=== PATIENT | female | born 2000 | race Caucasian/White ===

== ENCOUNTER 2018-01-09 07:44 | Inpatient (IN) | payer OTHER ==
[2018-01-09] MEDS ORDERED: Nalbuphine 20 MG/ML 1 ML Syringe IVPUSH PRN (16:15)
[2018-01-09] MEDS ORDERED: Sodium Chloride 0.9% 10 ML Syringe FLUSH PRN (16:15)
--- NOTE | 2018-01-09 16:19 | PCM.PRNOTE ---
- Free Text/Narrative Note: Patient consented for harper bulb placement. Cervix 06/24/-3 Harper bulb placed. Inflated to 30 mL Patient tolerated well
[2018-01-09] MEDS ORDERED: ePHEDrine 50 MG/ML SDV IVPUSH PRN (19:10)
[2018-01-09] MEDS ORDERED: fentaNYL 100 MCG/2 ML SDV EPIDUR PRN (19:10)
[2018-01-09] MEDS ORDERED: Ondansetron 4 MG/2 ML SDV IVPUSH PRN (19:10)
--- NOTE | 2018-01-09 19:17 | PCM.PREANE ---
Preanesthetic Assessment - Procedure Proposed Procedure: ANSELMO - Anesthesia/Transfusion/Family Hx Anesthesia History: Prior Anesthesia Without Reaction Family History of Anesthesia Reaction: No Transfusion History: No Prior Transfusion(s) Additional History: Allergic to PCN - Review of Systems General: No Symptoms Pulmonary: No Symptoms Cardiovascular: No Symptoms Gastrointestinal: Other (GERD with ) Neurological: No Symptoms Other: Reports: None - Physical Assessment NPO Status Date: 01/09/18 NPO Status Time: 16:00 Pulse: 100 O2 Sat by Pulse Oximetry: 98 Respiratory Rate: 20 Blood Pressure: 123/82 Temperature: 37.0 C ASA Class: 2 Mental Status: Alert & Oriented x3 Airway Class: Mallampati = 1 Dentition: Reports: Normal Dentition Thyro-Mental Finger Breadths: 3 Mouth Opening Finger Breadths: 3 ROM/Head Extension: Full Lungs: Clear to Auscultation, Normal Respiratory Effort Cardiovascular: Regular Rate, Regular Rhythm - Lab Values: Laboratory Last Values WBC 14.29 K/mm3 (3.98-10.04) H 01/09/18 16:34 RBC 4.42 M/mm3 (3.98-5.22) 01/09/18 16:34 Hgb 13.1 gm/L (11.2-15.7) 01/09/18 16:34 Hct 40.1 % (34.1-44.9) 01/09/18 16:34 MCV 90.7 fl (79.4-94.8) 01/09/18 16:34 MCH 29.6 pg (25.6-32.2) 01/09/18 16:34 MCHC 32.7 g/dl (32.2-35.5) 01/09/18 16:34 RDW Std Deviation 45.2 fL (36.4-46.3) 01/09/18 16:34 Plt Count 241 K/mm3 (182-369) 01/09/18 16:34 MPV 11.5 fl (9.4-12.3) 01/09/18 16:34 MRSA (PCR) Negative 01/09/18 15:07 Blood Type O POSITIVE 01/09/18 16:34 Gel Antibody Screen Negative 01/09/18 16:34 - Blood Blood Available: No Product(s) Available: None - Anesthesia Plan Pre-Op Medication Ordered: None - Acknowledgements Anesthesia Type Planned: Epidural Pt an Appropriate Candidate for the Planned Anesthesia: Yes Alternatives and Risks of Anesthesia Discussed w Pt/Guardian: Yes Pt/Guardian Understands and Agrees with Anesthesia Plan: Yes PreAnesthesia Questionnaire - CURRENT (IN HOUSE) MEDS Current Meds: Current Medications Diphenhydramine HCl (Benadryl) 25 mg IVPUSH Q6H PRN PRN Reason: Pruritis Ephedrine Sulfate (Ephedrine Sulfate) 5 mg IVPUSH ASDIRECTED PRN PRN Reason: Hypotension Fentanyl (Sublimaze) 100 mcg EPIDUR Q3H PRN PRN Reason: Pain Fentanyl/Bupivacaine HCl (Fentanyl/Bupivacaine/Ns 2 Mcg-0.125% 100 Ml) 100 ml EPIDUR ASDIRECTED WILLIAN Lactated Ringer's (Ringers, Lactated) 1,000 mls @ 100 mls/hr IV ASDIRECTED WILLIAN Nalbuphine HCl (Nubain) 10 mg IVPUSH Q2H PRN PRN Reason: pain Ondansetron HCl (Zofran) 4 mg IVPUSH ONETIME PRN PRN Reason: Nausea/Vomiting Sodium Chloride (Saline Flush) 10 ml FLUSH ASDIRECTED PRN PRN Reason: Keep Vein Open
[2018-01-09] MEDS ORDERED: Pneumococcal Polyvalent-23 Vaccine 0.5 ML SDV IM ONE (19:22)
[2018-01-09] MEDS ORDERED: Diphtheria,Pertussis(Acell),Tetanus Vaccine 0.5 ML SDV IM ONE (19:22)
[2018-01-09] MEDS ORDERED: Bupivacaine 0.25% 10 ML SDV ONE (22:00)
[2018-01-10] MEDS: Acetaminophen 325 MG Tab PO PRN ×2 (01:34→15:22)
[2018-01-10] MEDS: Lactated Ringers 1,000 ML IV SCH ×3 (05:21→20:57)
[2018-01-10] MEDS: Oxytocin/Lactated Ringers 10 UNIT/1,000 ML BAG IV SCH ×2 (05:21→16:00)
[2018-01-10] MEDS: Bupivacaine/fentaNYL/NS 100 ML Bag EPIDUR SCH (18:54)
[2018-01-10] MEDS: diphenhydrAMINE 50 MG/ML SDV IVPUSH PRN (22:11)
[2018-01-11] MEDS: Lactated Ringers 1,000 ML IV SCH ×6 (00:39→07:09)
[2018-01-11] MEDS: Bupivacaine/fentaNYL/NS 100 ML Bag EPIDUR SCH (02:27)
[2018-01-11] MEDS ORDERED: fentaNYL 100 MCG/2 ML SDV EPIDUR PRN (04:57)
[2018-01-11] MEDS: diphenhydrAMINE 50 MG/ML SDV IVPUSH PRN (05:42)
--- NOTE | 2018-01-11 05:56 | PCM.SN ---
- Free Text/Narrative Note: Epidural catheter disconnected on arrival to OB. The locking device had opened slightly and the catheter had pulled back. On inspection fluid was noted at the tip of the epidural catheter. No fluid was noted on the pillow. Nursing noted they had been in around 0400 and the Haroon was using her epidural SCHEDULING ADMINISTRATOR with some relief and feeling of cold infusing and epidural was intact at that point. Epidural line was cleaned and dried. A new connector and filter were placed on the epidural.
--- NOTE | 2018-01-11 08:29 | PCM48HPAN ---
Post Anesthesia Note - EVALUATION WITHIN 48HRS OF ANESTHETIC Vital Signs in Normal Range: Yes Patient Participated in Evaluation: Yes Respiratory Function Stable: Yes Airway Patent: Yes Cardiovascular Function Stable: Yes Hydration Status Stable: Yes Pain Control Satisfactory: Yes Nausea and Vomiting Control Satisfactory: Yes Mental Status Recovered: Yes Pulse Rate: 100 Resp Rate: 20 Temperature: 98.6 F Blood Pressure: 123/82
[2018-01-11] MEDS ORDERED: Witch Hazel Medicated Pads 100/Jar TOP PRN (09:24)
[2018-01-11] MEDS ORDERED: Docusate Sodium 100 MG Cap PO PRN (09:24)
[2018-01-11] MEDS ORDERED: Lanolin 100% Cream 7 GM Tube TOP PRN (09:24)
[2018-01-11] MEDS ORDERED: Benzocaine/Menthol 20%-0.5% Spray 56 GM Canister TOP PRN (09:24)
[2018-01-11] MEDS: Ibuprofen 600 MG Tab PO PRN ×2 (10:11→17:59)
--- NOTE | 2018-01-11 18:54 | PCM.SN ---
- Free Text/Narrative Note: See paper H&P from clinic chart
--- NOTE | 2018-01-11 19:01 | PCM.SN ---
- Free Text/Narrative Note: Stage I: Patient presented for induction for elevated blood pressures. Mcadams bulb placed. AROM clear fluid. Pitocin augmentation and progressed very slowly to complete. Stage II: of a viable male. Weight 2910g. APGARs 8/9 at 0734. Head delivered in controlled manner over intact perineum. Body and shoulders followed atraumatically. Baby to maternal abdomen. Cord clamped and cut. Cord blood collected. 3vc. Stage III - Placenta delivered spontaneously and intact. Minimal ebl. No laceration.
[2018-01-12] MEDS: Ibuprofen 600 MG Tab PO PRN ×2 (01:23→06:12)
--- NOTE | 2018-01-12 08:40 | PCM.DCSUM1 ---
Discharge Summary - Hospital Course Diagnosis: Stroke: No - Discharge Data Discharge Date: 01/12/18 Discharge Disposition: Home, Self-Care 01 Condition: Good - Patient Instructions Diet: Usual Diet as Tolerated Activity: No Strenuous Activities Activity, Other: pelvic rest Driving: May Drive Today Showering/Bathing: May Shower Notify Provider of: Fever, Increased Pain, Swelling and Redness, Drainage, Nausea and/or Vomiting - Discharge Plan *PRESCRIPTION DRUG MONITORING PROGRAM REVIEWED*: No *COPY OF PRESCRIPTION DRUG MONITORING REPORT IN PATIENT AYAN: No Home Medications: Home Meds Cetirizine [ZyrTEC] 10 mg PO DAILY PRN 01/09/18 [History] Pnv No.122/Iron/Folic Acid [ Multi Tablet] 1 each PO DAILY 01/09/18 [ History] Referrals: Carol Kaur MD [Primary Care Provider] - (2-4 weeks) - Discharge Summary/Plan Comment DC Time >30 min.: No - General Info Date of Service: 01/12/18 Functional Status: Reports: Pain Controlled - Review of Systems General: Reports: No Symptoms HEENT: Reports: No Symptoms Pulmonary: Reports: No Symptoms Cardiovascular: Reports: No Symptoms Gastrointestinal: Reports: No Symptoms Genitourinary: Reports: No Symptoms Musculoskeletal: Reports: No Symptoms Skin: Reports: No Symptoms Neurological: Reports: No Symptoms Psychiatric: Reports: No Symptoms - Patient Data Vitals - Most Recent: Last Vital Signs Temp 36.9 C 01/12/18 04:58 Pulse 77 01/12/18 04:58 Resp 16 01/11/18 21:58 BP 110/49 L 01/12/18 04:58 Pulse Ox 97 01/12/18 04:58 Weight - Most Recent: 95.164 kg I&O - Last 24 hours: Intake & Output 01/11/18 01/12/18 01/12/18 22:59 06:59 14:59 Intake Total 120 Balance 120 CARLENE Results - Last 24 hrs: Microbiology 01/09/18 15:09 MRSA Culture - Final Axilla, Right NO MRSA ISOLATED Med Orders - Current: Current Medications Benzocaine/Menthol (Dermoplast Pain Relief [place]) 0 gm TOP ASDIRECTED PRN PRN Reason: Perineal Comfort Measure Last Admin: 01/11/18 10:11 Dose: 1 can Docusate Sodium (Colace) 100 mg PO BID PRN PRN Reason: Constipation Emollient Ointment (Lansinoh Hpa) 0 gm TOP ASDIRECTED PRN PRN Reason: Sore Nipples Ibuprofen (Motrin) 600 mg PO Q6H PRN PRN Reason: Mild pain or fever Last Admin: 01/12/18 06:12 Dose: 600 mg Witch Gloria (Tucks) 1 pad TOP ASDIRECTED PRN PRN Reason: Hemorrhoid pain Last Admin: 01/11/18 10:11 Dose: 1 canister Discontinued Medications Acetaminophen (Tylenol) 650 mg PO Q6H PRN PRN Reason: Headache Last Admin: 01/10/18 15:22 Dose: 650 mg Bupivacaine HCl (Sensorcaine-Mpf 0.25%) 10 ml .ROUTE .STK-MED ONE Stop: 01/09/18 22:01 Diphenhydramine HCl (Benadryl) 25 mg IVPUSH Q6H PRN PRN Reason: Pruritis Last Admin: 01/11/18 05:42 Dose: 12.5 mg Diphtheria/Tetanus/Acell Pertussis (Adacel) 0.5 ml IM .ONCE ONE Stop: 01/09/18 19:23 Ephedrine Sulfate (Ephedrine Sulfate) 5 mg IVPUSH ASDIRECTED PRN PRN Reason: Hypotension Fentanyl (Sublimaze) 100 mcg EPIDUR Q3H PRN PRN Reason: Pain Last Admin: 01/10/18 18:54 Dose: 100 mcg Fentanyl (Sublimaze) 100 mcg EPIDUR ONETIME PRN PRN Reason: Pain Last Admin: 01/11/18 05:15 Dose: 100 mcg Fentanyl/Bupivacaine HCl (Fentanyl/Bupivacaine/Ns 2 Mcg-0.125% 100 Ml) 100 ml EPIDUR ASDIRECTED WILLIAN Last Admin: 01/11/18 02:27 Dose: 100 ml Lactated Ringer's (Ringers, Lactated) 1,000 mls @ 100 mls/hr IV ASDIRECTED WILLIAN Last Admin: 01/11/18 07:09 Dose: 100 mls/hr Oxytocin/Lactated Ringer's (Pitocin In Lr 10 Units/1,000 Ml) 10 unit in 1,000 mls @ 12 mls/hr IV TITRATE WILLIAN; Protocol Last Titration: 01/11/18 06:30 Dose: Infused Nalbuphine HCl (Nubain) 10 mg IVPUSH Q2H PRN PRN Reason: pain Ondansetron HCl (Zofran) 4 mg IVPUSH ONETIME PRN PRN Reason: Nausea/Vomiting Pneumococcal Polyvalent Vaccine (Pneumovax 23) 0.5 ml IM .ONCE ONE Stop: 01/09/18 19:23 Sodium Chloride (Saline Flush) 10 ml FLUSH ASDIRECTED PRN PRN Reason: Keep Vein Open - Exam General: Reports: Alert, Oriented HEENT: Reports: Pupils Equal, Pupils Reactive, EOMI, Mucous Membr. Moist/[place] Neck: Reports: Supple Lungs: Reports: Clear to Auscultation, Normal Respiratory Effort Cardiovascular: Reports: Regular Rate, Regular Rhythm GI/Abdominal Exam: Normal Bowel Sounds, Soft, Non-Tender, No Organomegaly, No Distention, No Abnormal Bruit, No Mass, Pelvis Stable Back Exam: Reports: Normal Inspection, Full Range of Motion Extremities: Normal Inspection, Normal Range of Motion, Non-Tender, No Pedal Edema, Normal Capillary Refill Skin: Reports: Warm, Dry, Intact Wound/Incisions: Reports: Healing Well Neurological: Reports: No New Focal Deficit Psy/Mental Status: Reports: Alert, Normal Affect, Normal Mood
[2018-01-12] MEDS ORDERED: Diphtheria,Pertussis(Acell),Tetanus Vaccine 0.5 ML SDV IM ONE (09:57)
== END 2018-01-12 11:30 | disposition home or self-care (01) | DRG 775 ==
LOC: JD.OB 07:44 → OBSVTOIN 01-11 07:44 → JD.OB 01-11 07:45
PROVIDERS: ADMIT Obstetrics & Gynecology; ATTEND Obstetrics & Gynecology
PROC: 0U7C7ZZ Dilation of Cervix, Via Natural or Artificial Opening (ICD-10-PCS; principal; 2018-01-11)
PROC: 10E0XZZ Delivery of Products of Conception, External Approach (ICD-10-PCS; principal; 2018-01-11)
PROC: 10907ZC Drainage of Amniotic Fluid, Therapeutic from Products of Conception, Via Natural or Artificial Opening (ICD-10-PCS; principal; 2018-01-11)
PROC: 6A550ZT Pheresis of Cord Blood Stem Cells, Single (ICD-10-PCS; principal; 2018-01-11)
PROC: 00HU33Z Insertion of Infusion Device into Spinal Canal, Percutaneous Approach (ICD-10-PCS; 2018-01-11)
PROC: 3E0R3BZ Introduction of Anesthetic Agent into Spinal Canal, Percutaneous Approach (ICD-10-PCS; 2018-01-11)
PROC: 3E0234Z Introduction of Serum, Toxoid and Vaccine into Muscle, Percutaneous Approach (ICD-10-PCS; 2018-01-12)
DX: O75.89 Other specified complications of labor and delivery (principal); Z37.0 Single live birth; O99.52 Diseases of the respiratory system complicating childbirth; Z3A.00 Weeks of gestation of pregnancy not specified; R03.0 Elevated blood-pressure reading, without diagnosis of hypertension; Z86.14 Personal history of Methicillin resistant Staphylococcus aureus infection; Z88.0 Allergy status to penicillin; Z23 Encounter for immunization
CPT/HCPCS: 36415; 51701; 51702; 59025; 59409; 85027; 86592; 86850; 86900; 86901; 87070; 87641; 90471; 90715; A9270-GY; G0010; J1200; J2590; J3010; J3490; J7120